=== PATIENT | female | born 1980 | race Caucasian/White ===

== ENCOUNTER 2017-01-28 17:55 | Emergency (ER) | payer OTHER ==
[2017-01-28] MEDS ORDERED: Ketorolac 30 MG/ML SDV IVPUSH ONE (18:09)
[2017-01-28] MEDS ORDERED: Tamsulosin 0.4 MG Cap.ER PO ONE (18:09)
[2017-01-28] MEDS ORDERED: Sodium Chloride 0.9% 10 ML Syringe FLUSH PRN (18:20)
[2017-01-28 18:50] VITALS: BP 112/60
--- NOTE | 2017-01-28 19:05 | EDM.PDOC ---
ED HPI RENAL/ - General Chief Complaint: Flank Pain Stated Complaint: RT SIDE PAIN Time Seen by Provider: 01/28/17 17:55 Source: Reports: Patient, Family History Limitations: Reports: Other (flank pain) - History of Present Illness INITIAL COMMENTS - FREE TEXT/NARRATIVE: 36 years old w f with R nephrolithiasis, had a stent in her r ureter which she removed today, after which her r flank pain became acutely worse. She has more blood in her urine now. She feels severe spasm at her r flank. Pt refused complete W/U because she was told she will have pain as soon she pulls the stent. Pt has an appointment with the [facility] to remove the stone. Symptom Onset Date: 01/28/17 Symptom Onset Time: 13:00 Timing/Duration: Reports: Hour(s):, Getting worse, Sudden onset Location: Reports: flank (r flank) Quality: Reports: burning, cramping, fullness, stabbing, throbbing Severity: moderate Improves with: Reports: lying down Worsens with: Reports: palpation, sitting up Context: Reports: other (Kidney stone) - Related Data Allergies/ADRs: Allergies Allergy/AdvReac Type Severity Reaction Status Date / Time No Known Allergies Allergy Verified 01/28/17 18:05 Home Meds: Home Meds FLUoxetine [PROzac] 40 mg PO BEDTIME 07/05/13 [History] Hydrocodone/Acetaminophen [Hydrocodon-Acetaminophen 5-325] 1 tab Q6H PRN [History] Oxybutynin 2.5 mg PO TID PRN 01/28/17 [History] Sennosides [Senna] 2 tab PO BEDTIME PRN 01/28/17 [History] Past Medical History - Past Health History Medical/Surgical History: Denies Medical/Surgical History Other Genitourinary History: recent cystoscopy with stent placement. stents removed eariler today.(01-28-17) Psychiatric History: Reports: Anxiety Social & Family History - Family History Family Medical History: Noncontributory - Tobacco Use Smoking Status *Q: Never Smoker Second Hand Smoke Exposure: No - Caffeine Use Caffeine Use: Reports: Coffee - Recreational Drug Use Recreational Drug Use: No ED ROS GENERAL - Review of Systems Review Of Systems: See Below Constitutional: Reports: no symptoms HEENT: Reports: No symptoms Respiratory: Reports: No Symptoms Cardiovascular: Reports: No symptoms Endocrine: Reports: no symptoms GI/Abdominal: Reports: No symptoms : Reports: dysuria, flank pain Musculoskeletal: Reports: no symptoms Skin: Reports: no symptoms Neurological: Reports: No Symptoms Hematologic/Lymphatic: Reports: no symptoms Immunologic: Reports: no symptoms ED EXAM, RENAL/ - Physical Exam Exam: See Below Exam Limited By: Uncooperative (r flank pain) General Appearance: alert, WD/WN, moderate distress Eye Exam: bilateral eye: normal inspection Ears: normal external exam Nose: normal inspection Throat/Mouth: Normal inspection, Normal lips Head: atraumatic, normocephalic Neck: normal inspection, supple, non-tender, full range of motion Respiratory/Chest: no respiratory distress, lungs clear Cardiovascular: normal peripheral pulses, regular rate, rhythm GI/Abdominal: tender (r flank) (Female) Exam: Deferred Rectal (Female) Exam: Deferred Back Exam: normal inspection, CVA tenderness (R) Extremities: normal inspection, normal range of motion, non-tender Neurological: alert, oriented, CN II-XII intact, normal cognition Psychiatric: normal affect Skin Exam: Warm, Dry Lymphatic: no adenopathy Course - Vital Signs Text/Narrative:: 36 years old w f with R nephrolithiasis, had a stent in her r ureter which she removed today, after which her r flank pain became acutely worse. She has more blood in her urine now. She feels severe spasm at her r flank. Pt refused complete W/U because she was told she will have pain as soon she pulls the stent. Pt has an appointment with the [facility] to remove the stone. PE: Left flank pain to palp and at rest Pt refused imaging studies, Labs tests etc Tx: Toradol initially, UA was ordered. Pt signed out AMA Last Recorded V/S: Last Vital Signs Temp 36.3 C 01/28/17 17:55 Pulse 69 01/28/17 17:55 Resp 18 01/28/17 17:55 BP 112/60 01/28/17 17:55 Pulse Ox 100 01/28/17 17:55 - Orders/Labs/Meds Orders: Active Orders 24 hr Category Date Time Status Peripheral IV Insertion Adult [OM.PC] Routine Oth 01/28/17 18:20 Ordered Labs: Laboratory Tests 01/28/17 01/28/17 Range/Units 18:30 18:30 Urine Color Red (YELLOW) Urine Appearance Turbid (CLEAR) Urine pH 5.0 (5.0-6.5) Ur Specific [place] 1.020 (1.010-1.025) Urine Protein 100 H (NEGATIVE) mg/dL Urine Glucose (UA) Normal (NEGATIVE) mg/dL Urine Ketones Negative (NEGATIVE) mg/dL Urine Occult Blood Large H (NEGATIVE) Urine Nitrite Negative (NEGATIVE) Urine Bilirubin Negative (NEGATIVE) Urine Urobilinogen Normal (NEGATIVE) mg/dL Ur Leukocyte Esterase Negative (NEGATIVE) Urine RBC Packed H (0) Urine WBC [employer] Urine HCG, Qual Negative (NEGATIVE) Meds: Medications Discontinued Medications Generic Name Dose Route Start Last Admin Trade Name Freq PRN Reason Stop Dose Admin Ketorolac Tromethamine 30 mg 01/28/17 18:09 01/28/17 18:12 Toradol IVPUSH 01/28/17 18:10 30 mg ONETIME ONE Administration Sodium Chloride 10 ml 01/28/17 18:20 01/28/17 18:09 Saline Flush FLUSH 10 ml ASDIRECTED PRN Administration Keep Vein Open Tamsulosin HCl 0.4 mg 01/28/17 18:09 01/28/17 18:19 Flomax PO 01/28/17 18:10 0.4 mg ONETIME ONE Administration Departure - Departure Time of Disposition: 19:10 Disposition: Against Medical Advice 07 Condition: fair Clinical Impression: Flank pain, Hematuria Referrals: PCP,None [Primary Care Provider] - Forms: ED Department Discharge - My Orders Last 24 Hours: My Active Orders 01/28/17 18:20 Peripheral IV Insertion Adult [OM.PC] Routine - Assessment/Plan Last 24 Hours: My Active Orders 01/28/17 18:20 Peripheral IV Insertion Adult [OM.PC] Routine
== END 2017-01-28 19:35 | disposition left against medical advice (07) ==
LOC: FB.ED 17:55
DX: R31.9 Hematuria, unspecified (principal); R10.9 Unspecified abdominal pain; F41.9 Anxiety disorder, unspecified; Z98.890 Other specified postprocedural states
CPT/HCPCS: 81001; 81025; 96374; 99284; A9270; J1885; J7050